=== PATIENT | female | born 1995 | race Caucasian/White ===

== ENCOUNTER 2017-10-25 16:34 | Emergency (ER) | payer OTHER ==
[~2017-10-25] VITALS: Ht 162.6 cm; Wt 63.5 kg
[~2017-10-25 16:34] MED LIST: CHOL100010 PO; CYAN10004 PO; FERR1TAB13 PO; LISD20CA PO; OMEG10007 PO
[2017-10-25 16:41] VITALS: TEMP 37.3; Ht 162.6 cm; Wt 63.5 kg
[2017-10-25] MEDS ORDERED: KETOROLAC TROMETHAMINE 30 MG/ML VIAL IV STA (17:29)
[2017-10-25] MEDS ORDERED: SODIUM CHLORIDE 0.9% 500ML 500 ML IV STA (17:29)
--- NOTE | 2017-10-25 17:35 | EMERGENCY ROOM VISIT NOTE ---
History First contact with patient: 17:17 Chief Complaint: URINARY SYMPTOMS Stated Complaint: BURNING,PAIN DOWN CROTCH,CRAMPS,DIZZY Nursing Triage Summary: "intense pain in my crotch. it swift when I pee. patient denies any vaginal discharge" History of Present Illness The patient is a 22 year old female who presents to the Emergency Room with complaints of burning with urination and pain in the genital area that has been going on for approximately 1 week. The patient also reports abdominal bloating , nausea and malaise. She has not taken her temperature at home. She reports having an IUD for approximately 1 year. She denies any vaginal discharge. She is sexually active with one partner. No changes in bowel movements. She denies any flank pain. Review of Systems 10 system review performed and negative unless noted in HPI or below Past Medical/Surgical History Medical Problems: (1) Anxiety (2) Depression (3) Mood disorder (4) Suicidal ideation Family History Patient reports no known family medical history. Social History Smoking Status: Never Smoker Alcohol Use: occasionally Drug Use: marijuana Marital Status: single Housing Status: lives with roommate Occupation Status: [employer] student Current/Historical Medications Scheduled Ciprofloxacin Hcl (Cipro), 500 MG PO BID Escitalopram Oxalate (Lexapro), 20 MG PO DAILY Lisdexamfetamine Dimesylate (Vyvanse), 20 MG PO DAILY Valacyclovir Hcl (Valtrex), 500 MG PO UD Physical Exam Vital Signs Date Time Temp Pulse Resp B/P (MAP) Pulse Ox O2 Delivery O2 Flow Rate FiO2 10/25/17 20:04 70 18 110/61 98 10/25/17 19:23 73 18 102/53 98 Room Air 10/25/17 18:07 85 18 101/66 97 Room Air 10/25/17 16:41 37.3 90 18 119/78 97 Room Air Physical Exam VITALS: Vitals are noted on the nurse's note and reviewed by myself. Vital signs stable. GENERAL: 22-year-old female, in no acute distress, nondiaphoretic, well- developed well-nourished. SKIN: The skin was without rashes, erythema, edema, or bruising. HEAD: Normocephalic atraumatic. MOUTH: Mucous membranes moderately dry. Tonsils are not enlarged. Pharynx without erythema or exudate. Uvula midline. Airway patent. Tongue does not deviate. NECK: Supple without nuchal rigidity. HEART: Regular rate and rhythm without murmurs gallops or rubs. LUNGS: Clear to auscultation bilaterally without wheezes, rales or rhonchi. No accessory muscle use. ABDOMEN: Positive bowel sounds x 4.Soft, nontender, without organomegaly. No guarding or rebound tenderness. Mild left-sided CVA tenderness noted. : External genitalia exam reveals multiple 3 mm circular ulcerations and vesicles in the labia majora and minora. Significant pain with this area. The patient was unable to tolerate a speculum exam. MUSCULOSKELETAL: No muscle atrophy, erythema, or edema noted. . Strength 5/5 throughout. NEURO: Patient was alert and oriented to person place and time. Normal sensation to touch. No focal neurological deficits. Medical Decision & Procedures Laboratory Results 10/25/17 18:03 Red Blood Count 3.85, Mean Corpuscular Volume 88.3, Mean Corpuscular Hemoglobin 32.2, Mean Corpuscular Hemoglobin Concent 36.5, Mean Platelet Volume 8.7, Neutrophils (%) (Auto) 71.0, Lymphocytes (%) (Auto) 12.3, Monocytes (%) (Auto) 16.2, Eosinophils (%) (Auto) 0.0, Basophils (%) (Auto) 0.2, Neutrophils # (Auto ) 7.42, Lymphocytes # (Auto) 1.28, Monocytes # (Auto) 1.69, Eosinophils # (Auto ) 0.00, Basophils # (Auto) 0.02 10/25/17 18:03 Test 10/25/17 18:03 10/25/17 18:30 White Blood Count 10.44 K/uL (4.8-10.8) Red Blood Count 3.85 M/uL (4.2-5.4) Hemoglobin 12.4 g/dL (12.0-16.0) Hematocrit 34.0 % (37-47) Mean Corpuscular Volume 88.3 fL (80-100) Mean Corpuscular Hemoglobin 32.2 pg (25-34) Mean Corpuscular Hemoglobin Concent 36.5 g/dl (32-36) Platelet Count 213 K/uL (130-400) Mean Platelet Volume 8.7 fL (7.4-10.4) Neutrophils (%) (Auto) 71.0 % Lymphocytes (%) (Auto) 12.3 % Monocytes (%) (Auto) 16.2 % Eosinophils (%) (Auto) 0.0 % Basophils (%) (Auto) 0.2 % Neutrophils # (Auto) 7.42 K/uL (1.4-6.5) Lymphocytes # (Auto) 1.28 K/uL (1.2-3.4) Monocytes # (Auto) 1.69 K/uL (0.11-0.59) Eosinophils # (Auto) 0.00 K/uL (0-0.5) Basophils # (Auto) 0.02 K/uL (0-0.2) RDW Standard Deviation 48.0 fL (36.4-46.3) RDW Coefficient of Variation 14.9 % (11.5-14.5) Immature Granulocyte % (Auto) 0.3 % Immature Granulocyte # (Auto) 0.03 K/uL (0.00-0.02) Anion Gap 6.0 mmol/L (3-11) Est Creatinine Clear Calc Drug Dose 126.1 ml/min Estimated GFR () > 150.0 Estimated GFR (Non- 129.6 BUN/Creatinine Ratio 12.1 (10-20) Calcium Level 8.3 mg/dl (8.5-10.1) Total Bilirubin 0.7 mg/dl (0.2-1) Aspartate Amino Transf (AST/SGOT) 11 U/L (15-37) Alanine Aminotransferase (ALT/SGPT) 15 U/L (12-78) Alkaline Phosphatase 63 U/L (45-117) Total Protein 6.9 gm/dl (6.4-8.2) Albumin 3.4 gm/dl (3.4-5.0) Globulin 3.5 gm/dl (2.5-4.0) Albumin/Globulin Ratio 1.0 (0.9-2) Human Chorionic Gonadotropin, Qual NEG (NEG) Urine Color YELLOW Urine Appearance CLOUDY (CLEAR) Urine pH 8.0 (4.5-7.5) Urine Specific [place] 1.019 (1.000-1.030) Urine Protein NEG (NEG) Urine Glucose (UA) NEG (NEG) Urine Ketones NEG (NEG) Urine Occult Blood 1+ (NEG) Urine Nitrite NEG (NEG) Urine Bilirubin NEG (NEG) Urine Urobilinogen NEG (NEG) Urine Leukocyte Esterase LARGE (NEG) Urine WBC (Auto) >30 /hpf (0-5) Urine RBC (Auto) 5-10 /hpf (0-4) Urine Hyaline Casts (Auto) 5-10 /lpf (0-5) Urine Epithelial Cells (Auto) >30 /lpf (0-5) Urine Bacteria (Auto) 2+ (NEG) Medications Administered Medications (Trade) Dose Ordered Sig/Janis Route Start Time Stop Time Status Last Admin Dose Admin Ketorolac Tromethamine (Toradol Inj) 30 mg NOW STAT IV 10/25/17 17:29 10/25/17 17:33 DC 10/25/17 18:06 30 MG Sodium Chloride 500 ml @ 999 mls/hr Q31M STAT IV 10/25/17 17:29 10/25/17 17:59 DC 10/25/17 18:05 999 MLS/HR Valacyclovir HCl (Valtrex Tab) 500 mg NOW ONCE PO 10/25/17 19:00 10/25/17 19:01 DC 10/25/17 19:16 500 MG Lidocaine HCl (Xylocaine Jelly 2%) 3 ml NOW ONCE EXT 10/25/17 19:00 10/25/17 19:01 DC 10/25/17 19:17 3 ML Ciprofloxacin (Cipro Tab) 500 mg NOW STAT PO 10/25/17 19:07 10/25/17 19:08 DC 10/25/17 19:17 500 MG ED Course Patient was seen and examined Vital signs including blood pressure were reviewed medications list was verified with patient Labs were obtained, and a saline lock was established Patient was given Toradol 30 mg IV for pain. She was hydrated with 500 cc of normal saline. Upon reevaluation, the patient was feeling more comfortable. We thoroughly reviewed her workup. She voiced understanding. She was given 1 dose of Valtrex and Cipro. She was also given lidocaine jelly. I reviewed discharge instructions the patient. They voiced understanding and had no further questions. Medical Decision Differential diagnosis: STD, PID, UTI, pyelonephritis, ureteral stone, ectopic This patient is a 22-year-old female that presents to the emergency department complaining of burning with urination and pain in the genital area. She also reports nausea, abdominal bloating and malaise. On exam, the patient had multiple ulcerations and vesicles in the genital area consistent with a herpes outbreak. She has been diagnosed with this before. She also appears to have multiple leukocytes in her urine. She also complains of burning with urination ; therefore, I will treat the patient also for UTI. She was encouraged to follow-up with [facility] next week for a recheck including a repeat urinalysis. She agrees to return to the emergency department with worsening symptoms. This chart was completed in part utilizing [employer] Voice Recognition software. Attempts were made to minimize the grammatical errors, random word insertions, pronoun errors and incomplete sentences. Any formal questions or concerns about the content, text or information contained within the body of this dictation should be directly addressed to the provider for clarification. Medication Reconcilliation Current Medication List: was personally reviewed by me Blood Pressure Screening Patient's blood pressure: Normal blood pressure Impression Primary Impression: Herpes genitalis Departure Information Dispostion Home / Self-Care Condition GOOD Prescriptions Ciprofloxacin Hcl (CIPRO) 500 Mg Tab 500 MG PO BID for 7 Days, #14 TAB Prov: Stephie Nixon PA-C 10/25/17 Valacyclovir Hcl (VALTREX) 500 Mg Tab 500 MG PO UD, #20 TAB Prov: Stephie Nixon PA-C 10/25/17 Referrals No Doctor, Assigned (PCP) Patient Instructions My [facility] Additional Instructions You were evaluated in the emergency department with difficulty urinating and pain in the genital region. This is likely due to a herpes outbreak. It is also likely that you have a urinary tract infection. Please take Valtrex 1 tab twice daily for 3 days. Then, please take 1 tab daily It is very important for you to follow-up with gynecology as soon as possible. Please call Friday morning for a follow-up appointment. No sexual activity while lesions are still present. Please apply lidocaine jelly every 6 hours as needed for pain Please take the entire course of antibiotics for the UTI. Please follow-up with [facility] next week Ibuprofen 800 mg and/or Tylenol 1000 mg every 8 hours for additional pain control You may also alternate these medications for more effective pain relief: Ibuprofen --4 HRS--> Tylenol --4 HRS--> ibuprofen --4 HRS--> Tylenol .... Please do not hesitate to return to the emergency department with any new, worsening or concerning symptoms It was a pleasure participating in your care today
[2017-10-25] MEDS ORDERED: ESCI1TAB10 PO (17:54)
[2017-10-25 18:20] LABS: HEMOGLOBIN 12.4 g/dL (12.0-16.0); MEAN CELL VOLUME 88.3 fL (80-100); MEAN CORPUSCULAR HEMOGLOBIN 32.2 pg (25-34); MEAN CORPUSCULAR HGB CONC 36.5 g/dl (32-36); MEAN PLATELET VOLUME 8.7 fL (7.4-10.4); PLATELET COUNT 213 K/uL (130-400); RED CELL DISTRIBUTION WIDTH CV 14.9 % (11.5-14.5); WHITE BLOOD COUNT 10.44 K/uL (4.8-10.8)
[2017-10-25 18:36] LABS: BASO % 0.2 %; BASO ABS # 0.02 K/uL (0-0.2); IG# 0.03 K/uL (0.00-0.02); LYMPH % 12.3 %; LYMPH ABS # 1.28 K/uL (1.2-3.4); MONO % 16.2 %; MONO ABS # 1.69 K/uL (0.11-0.59); NEUT ABS # 7.42 K/uL (1.4-6.5)
[2017-10-25 18:37] LABS: ALBUMIN 3.4 gm/dl (3.4-5.0); ALT/SGPT 15 U/L (12-78); BLOOD UREA NITROGEN 7 mg/dl (7-18); CALCIUM 8.3 mg/dl (8.5-10.1); CARBON DIOXIDE 26 mmol/L (21-32); CREATININE 0.61 mg/dl (0.60-1.20); GLUCOSE 101 mg/dl (70-99); POTASSIUM 3.8 mmol/L (3.5-5.1); SODIUM 134 mmol/L (136-145)
[2017-10-25 18:40] LABS: ALKALINE PHOSPHATASE 63 U/L (45-117); AST/SGOT 11 U/L (15-37); TOTAL PROTEIN 6.9 gm/dl (6.4-8.2)
[2017-10-25] MEDS ORDERED: LIDOCAINE HCL 2% JELLY 30 ML TUBE EXT ONE (19:00)
[2017-10-25] MEDS ORDERED: CIPROFLOXACIN 500 MG TAB PO STA (19:07)
[2017-10-25] MEDS ORDERED: CIPR-255 PO (19:55)
[2017-10-25] MEDS ORDERED: VALA500T39 PO (19:55)
[2017-10-25 20:04] VITALS: BP 110/61; PULSE 70; O2SAT 98
== END 2017-10-25 20:07 | disposition home or self-care (01) ==
LOC: C.EDB 16:36
DX: A60.00 Herpesviral infection of urogenital system, unspecified (principal); F41.9 Anxiety disorder, unspecified; F32.9 Major depressive disorder, single episode, unspecified; F12.90 Cannabis use, unspecified, uncomplicated